=== PATIENT | female | born 2000 | race Caucasian/White ===

== ENCOUNTER 2019-04-20 18:22 | Emergency (ER) | payer BC ==
[~2019-04-20] VITALS: Ht 160 cm; Wt 78.0 kg
[2019-04-20 18:35] VITALS: BP 130/76
--- NOTE | 2019-04-20 18:40 | NUR ---
PT AMBULATED TO BED, STEADY GAIT.
--- NOTE | 2019-04-20 18:48 | NUR ---
18 Y/F PRESENTS TO ED FOR RIGHT UPPER LIP LACERATION. 2 PARALLEL LINEAR LACERATIONS NOTED. PT REPORTS SHE WAS LYING DOWN AND HER PHONE FELL ON HER LIP SHE WAS SCROLLING, DENIES LOC. PT REPORTS 7/10 THROBBING PAIN. PT A&O X 4, RR EVEN AND UNLABORED. DENIES PMH MEDS- DENIES.
--- NOTE | 2019-04-20 18:59 | NUR ---
ROBERTH CHRISTOPHER AT BEDSIDE.
[2019-04-20] MEDS ORDERED: LIDOCAINE MPF 1% 10 MG/ML VIAL INJ ONE (19:05)
[2019-04-20] MEDS ORDERED: BACITRACIN OINT 500 UNITS/GM PKT TP ONE (19:05)
[2019-04-20 19:45] VITALS: BP 130/76
--- NOTE | 2019-04-20 19:45 | NUR ---
Patient discharged with v/s stable. Written and verbal after care instructions given and explained. Patient alert, oriented and verbalized understanding of instructions. Ambulatory with steady gait. All questions addressed prior to discharge. ID band removed. Patient given suture care education and stated understanding. Patient advised to follow up with PMD. Rx of BACITRACIN given. Patient educated on indication of medication including possible reaction and side effects. Opportunity to ask questions provided and answered.
== END 2019-04-20 19:45 | disposition home or self-care (01) ==
LOC: MED 18:22
DX: S01.81XA Laceration without foreign body of other part of head, initial encounter (principal); W04.XXXA Fall while being carried or supported by other persons, initial encounter; Y93.89 Activity, other specified; Y92.89 Other specified places as the place of occurrence of the external cause; Y99.8 Other external cause status
CPT/HCPCS: 12011; 90471; 90715; 99283; J2001

== ENCOUNTER 2019-04-22 11:23 | Emergency (ER) | payer BC ==
[~2019-04-22] VITALS: Ht 157.5 cm; Wt 75.3 kg
[2019-04-22 11:37] VITALS: BP 116/78
--- NOTE | 2019-04-22 11:42 | NUR ---
PATIENT AMBULATED WITH STEADY GAIT TO BED 1.
--- NOTE | 2019-04-22 11:53 | NUR ---
18 Y/O F C/C RECHECK ON STITCHES BY LEFT UPPER LIP. NO OTHER COMPLAINTS ASSESSED. PT NKA. NO HX. NO RX. NO N/V/D. NO PAIN. SIDE RAIL X1.
[2019-04-22 12:58] VITALS: BP 116/78
--- NOTE | 2019-04-22 12:58 | NUR ---
Patient discharged with v/s stable. Written and verbal after care instructions given and explained. Patient verbalized understanding. Ambulatory with steady gait. All questions addressed prior to discharge. Advised to follow up with PMD.
== END 2019-04-22 12:58 | disposition home or self-care (01) ==
LOC: MED 11:23
DX: S01.411D Laceration without foreign body of right cheek and temporomandibular area, subsequent encounter (principal); X58.XXXD Exposure to other specified factors, subsequent encounter
CPT/HCPCS: 99281

== ENCOUNTER 2019-04-27 17:17 | Emergency (ER) | payer BC ==
[~2019-04-27] VITALS: Ht 160 cm; Wt 73.5 kg
[2019-04-27 17:37] VITALS: BP 108/60
--- NOTE | 2019-04-27 17:40 | NUR ---
WAIT AT LOBBY.
--- NOTE | 2019-04-27 18:01 | NUR ---
Patient ambulated to bed 7
--- NOTE | 2019-04-27 18:30 | NUR ---
PATIENT PRESENTS TO ED FOR SUTURE REMOVAL . DENIES N/V/D; SKIN IS PINK/WARM/DRY; AAOX4 WITH EVEN AND STEADY GAIT; LUNGS CLEAR BL; HR EVEN AND REGULAR; PT DENIES ANY FEVER, CP, SOB, OR COUGH AT THIS TIME; PATIENT STATES PAIN OF 0/10 AT THIS TIME; VSS; PATIENT POSITIONED FOR COMFORT; HOB ELEVATED; BEDRAILS UP X2; BED DOWN. ER MD MADE AWARE OF PT STATUS. DR. WRIGHT REMOVED SUTURES AND DRESSES LACERATION
== END 2019-04-27 18:40 | disposition home or self-care (01) ==
LOC: MED 17:17
DX: R22.0 Localized swelling, mass and lump, head (principal); Z48.02 Encounter for removal of sutures
CPT/HCPCS: 99281

== ENCOUNTER 2019-05-21 18:18 | Emergency (ER) | payer BC ==
[~2019-05-21] VITALS: Ht 160 cm; Wt 73.0 kg
[2019-05-21 18:31] VITALS: BP 129/78
[2019-05-21] MEDS ORDERED: LIDOCAINE/EPI 2% 1:100000 20 ML VIAL INJ ONE (20:03)
[2019-05-21] MEDS ORDERED: ACETAMINOPHEN EXTRA STRENGTH 500 MG TAB PO ONE (20:30)
[2019-05-21] MEDS ORDERED: BACITRACIN OINT 500 UNITS/GM PKT TP ONE (20:41)
[2019-05-21 20:56] VITALS: BP 128/70
== END 2019-05-21 20:20 | disposition home or self-care (01) ==
LOC: MED 18:18
DX: S01.81XA Laceration without foreign body of other part of head, initial encounter (principal); W22.03XA Walked into furniture, initial encounter; Y93.89 Activity, other specified; Y92.89 Other specified places as the place of occurrence of the external cause; Y99.8 Other external cause status
CPT/HCPCS: 12011; 99282; J2001

== ENCOUNTER 2019-05-30 20:07 | Emergency (ER) | payer BC ==
[~2019-05-30] VITALS: Ht 160 cm; Wt 73.5 kg
[2019-05-30 20:19] VITALS: BP 98/70
[2019-05-30 21:24] VITALS: BP 100/68
== END 2019-05-30 21:24 | disposition home or self-care (01) ==
LOC: MED 20:07
DX: S01.111D Laceration without foreign body of right eyelid and periocular area, subsequent encounter (principal); X58.XXXD Exposure to other specified factors, subsequent encounter
CPT/HCPCS: 99281